=== PATIENT | male | born 1985 | race Caucasian/White ===

== ENCOUNTER 2019-11-30 13:38 | Outpatient (CLI) | payer OTHER, SELFPAY ==
[2019-11-30 14:07] LABS: Hematocrit 42.7 % (42.0-52.0); Hemoglobin 14.3 g/dL (14.0-18.0); Mean Corpuscular HGB Conc 33.5 g/dl (32-36); Mean Corpuscular Hemoglobin 30.2 pg (26-34); Mean Corpuscular Volume 90.3 fl (80-100); Mean Platelet Volume 9.4 fl (7.4-10.4); Platelet Count Result 215 k/mm3 (150-375); Red Blood Count 4.73 M/mm3 (4.6-6.20); Red Cell Distribution Width 12.1 % (11.5-14.5); White Blood Count 6.2 K/mm3 (4.5-10.0)
[2019-11-30 14:24] LABS: Blood Urea Nitrogen 13 mg/dL (9-20); Calcium 9.1 mg/dL (8.4-10.2); Carbon Dioxide 30 mmol/L (22-30); Chloride 100 mmol/L (98-107); Estimated Glomerular Filt Rate > 60; Glucose 74 mg/dL (75-110); Potassium 4.2 mmol/L (3.4-5.0); Sodium 136 mmol/L (137-145)
[2019-11-30 14:55] LABS: Thyroid Stimulating Hormone 0.729 uIU/mL (0.465-4.680)
[2019-12-03 12:09] LABS: Testosterone Total 525 ng/dL (250-1100)
== END 2019-11-30 13:39 | disposition home or self-care (01) ==
PROVIDERS: PCP Family Medicine; Visit Provider Physician Assistant Medical
DX: R53.83 Other fatigue (principal); E55.9 Vitamin D deficiency, unspecified
CPT/HCPCS: 36415; 80048; 82306; 82607; 84403; 84443; 85027

== ENCOUNTER 2020-07-05 06:54 | Outpatient (NON) | payer OTHER, SELFPAY ==
[2020-07-05 10:55] LABS: Influenza Control Positive
[2020-07-05 20:32] LABS: SARS-CoV-2 RNA PCR Negative
== END 2020-07-05 06:55 ==
LOC: ANHCOVIDDT 07:02
PROVIDERS: PCP Family Medicine; Visit Provider Nurse Practitioner Family
DX: J06.9 Acute upper respiratory infection, unspecified (principal); Z20.822 Contact with and (suspected) exposure to COVID-19
CPT/HCPCS: 87804; C9803; U0003; U0005